=== PATIENT | male | born 1955 | race Caucasian/White ===

== ENCOUNTER → 2021-03-20 | Day surgery (SDC) | payer OTHER ==
[~2021-03-20] VITALS: Ht 170.2 cm; Wt 107.5 kg
[~2021-03-20] MED LIST: AMLODIPINE BESYL5 MG PO; ASCORBIC ACID500 MG PO; CO Q-10100 MG PO; LATANOPROST2.5 ML AD; LEVOTHROID 0.0.15 MG PO; LISINOPRIL-HCT1 EACH PO; PRAVASTATIN SOD40 MG PO
[2021-03-20 08:53] LABS: HCT 40.8 % (42.0-52.0); HGB 13.9 g/dl (13.2-18.0); MCH 30.8 pg (25.0-31.0); MCHC 34.1 g/dL (32.0-36.0); MCV 90.3 fL (78.0-100.0); MPV 9.6 fL (6.0-9.5); RBC 4.52 M/uL (4.70-6.00); RDW 13.2 % (11.5-14.0); WBC 7.7 K/uL (4.0-10.5)
[2021-03-20 09:13] LABS: BUN/CREAT RATIO (CALC) 21.8 RATIO; CREATININE 0.55 mg/dL (0.67-1.17); POTASSIUM 4.1 mmol/L (3.5-5.1)
== END | disposition home or self-care (01) ==
LOC: FAS 07:43
PROVIDERS: Anesthesiology; Legal Medicine
DX: S43.431A Superior glenoid labrum lesion of right shoulder, initial encounter (principal); M13.811 Other specified arthritis, right shoulder; M75.101 Unspecified rotator cuff tear or rupture of right shoulder, not specified as traumatic; M75.41 Impingement syndrome of right shoulder; G89.18 Other acute postprocedural pain; X58.XXXA Exposure to other specified factors, initial encounter; I10 Essential (primary) hypertension; E03.9 Hypothyroidism, unspecified; E78.00 Pure hypercholesterolemia, unspecified; Z87.891 Personal history of nicotine dependence; Z79.899 Other long term (current) drug therapy
CPT/HCPCS: 36415; 80048; 93005; C1713; J0171; J0690; J1100; J1885; J2001; J2250; J2405; J2704; J2795; J7120

== ENCOUNTER → 2021-12-18 | Day surgery (SDC) | payer OTHER ==
[~2021-12-18] VITALS: Ht 170.2 cm; Wt 107.5 kg
[~2021-12-18] MED LIST changes: +GLUCOSAMINE &1 EACH PO
[2021-12-18 06:53] LABS: HCT 41.4 % (42.0-52.0); HGB 14.1 g/dl (13.2-18.0); MCH 30.7 pg (25.0-31.0); MCHC 34.1 g/dL (32.0-36.0); MCV 90.2 fL (78.0-100.0); MPV 10.4 fL (6.0-9.5); RBC 4.59 M/uL (4.70-6.00); RDW 13.5 % (11.5-14.0); WBC 8.7 K/uL (4.0-10.5)
[2021-12-18 07:03] LABS: CREATININE 0.6 mg/dL (0.67-1.17); POTASSIUM 4.1 mmol/L (3.5-5.1)
== END | disposition home or self-care (01) ==
LOC: FAS 06:00
PROVIDERS: Anesthesiology; Legal Medicine
DX: M67.442 Ganglion, left hand (principal); L60.0 Ingrowing nail; I10 Essential (primary) hypertension; E03.9 Hypothyroidism, unspecified
CPT/HCPCS: 36415; 80048; 93005; J0690; J1100; J1885; J2250; J2405; J2704; J2795; J3010; J7120